=== PATIENT | female | born 1940 | race Two or more races ===

== ENCOUNTER 2025-06-10 10:36 | Emergency (ER) | payer OTHER ==
[~2025-06-10] VITALS: Ht 160 cm; Wt 47.6 kg
[2025-06-10] MEDS ORDERED: PEPCID AC20 MG PO (10:41)
[2025-06-10] MEDS ORDERED: PROTONIX40 MG PO (10:41)
[2025-06-10] MEDS ORDERED: ARICEPT10 MG PO (10:41)
[2025-06-10] MEDS ORDERED: EVISTA60 MG PO (10:41)
[2025-06-10] MEDS ORDERED: ZOCOR20 MG PO (10:41)
[2025-06-10] MEDS ORDERED: FAMOTIDINE/PF 20 MG/2 ML VIAL IV ONE (11:45)
[2025-06-10] MEDS ORDERED: 0.9 % SODIUM CHLORIDE 1,000 ML IV ONE (11:45)
[2025-06-10] MEDS ORDERED: KETOROLAC TROMETHAMINE 15 MG VIAL IU ONE (11:45)
[2025-06-10] MEDS ORDERED: FAMOTIDINE/PF 20 MG/2 ML VIAL ONE (11:46)
[2025-06-10] MEDS ORDERED: KETOROLAC TROMETHAMINE 30 MG VIAL ONE (11:46)
[2025-06-10 12:34] LABS: BASO % 0.9 % (0.1-1.2); EOS # 0.06 (0.04-0.54); EOS % 0.9 % (0.7-7.0); LYMPH # 1.80 (1.18-3.74); LYMPH % 25.5 % (19.3-53.1); MEAN PLATELET VOLUME 9.30 fl (9.4-12.4); MONO # 0.59 (0.24-0.82); MONO % 8.4 % (4.7-12.5); NEUT # 4.51 (1.56-6.13); NEUT % 63.9 % (34.0-71.1); RED CELL DISTRIBUTION WIDTH 12.8 % (11.6-14.4)
[2025-06-10 12:52] LABS: URINE APPEARANCE Clear; URINE BILIRRUBIN Small (NEGATIVE); URINE BLOOD Negative; URINE COLOR Orange; URINE GLUCOSE Negative (NEGATIVE); URINE KETONE Negative (NEGATIVE); URINE LEUKOCYTE Small; URINE NITRATE Positive; URINE PROTEIN Trace (NEGATIVE); URINE UROBILINOGEN 1.0 E.U./dl
[2025-06-10 12:55] LABS: URINE BACTERIA 14.3 uL (0.0-1933); URINE CAST 4.10 uL (0.0-1.40); URINE EPITHELIAL CELLS 31.5 uL (0.0-38.8); URINE RBC 11.7 uL (0.0-20.8); URINE WBC 8.6 uL (0.0-23.2)
[2025-06-10 12:58] LABS: ALT/SGPT 19.0 U/L (12-78); AST/SGOT 28.0 U/L (15-37); BILIRUBIN TOTAL 0.44 mg/dL (0.3-1.2); BUN CREA RATIO 11.0 (7.0-25.0); CREATININE SERUM 1.35 mg/dL (0.55-1.02); GFR 37.36; GLOBULINA 3.7 G/DL (2.4-3.5); GLUCOSE FASTING 118.0 mg/dL (65-100); OSMOLALITY SERUM 287.0 MOSM/KG (275-295)
[2025-06-10 13:06] LABS: TYPE CELLS SQUAMOUS
== END 2025-06-10 16:50 | disposition home or self-care (01) ==
LOC: ER 10:37 → EDBD 11:08 → ER 16:50
PROVIDERS: Emergency Medicine
DX: R10.9 Unspecified abdominal pain (principal); Z88.6 Allergy status to analgesic agent